=== PATIENT | male | born 1945 | race Caucasian/White ===

== ENCOUNTER 2017-01-31 20:56 | Emergency (ER) | payer OTHER ==
[2017-01-31 23:32] LABS: HEMOGLOBIN 13.9 gm/dl (14.0-17.5); RED BLOOD COUNT 4.79 M/UL (4.20-5.50); WHITE BLOOD COUNT 7.7 K/UL (4.5-11.0)
[2017-02-01] LABS: BUN/CREATININE RATIO 16 (0-10)
== END 2017-02-01 06:32 | disposition left against medical advice (07) ==
LOC: ER1 20:56
PROVIDERS: Physician Assistant
DX: G93.40 Encephalopathy, unspecified (principal); R42 Dizziness and giddiness; R06.02 Shortness of breath; F17.210 Nicotine dependence, cigarettes, uncomplicated; Z95.1 Presence of aortocoronary bypass graft; Z95.5 Presence of coronary angioplasty implant and graft; Z79.82 Long term (current) use of aspirin; Z79.02 Long term (current) use of antithrombotics/antiplatelets
CPT/HCPCS: 36415; 70450; 71020; 80053; 80185; 80307; 81001; 82550; 82553; 83874; 84443; 84484; 85025; 87040; 87086; 93005; 99284